=== PATIENT | female | born 1970 | race Caucasian/White ===

== ENCOUNTER 2018-11-14 10:53 | Emergency (ER) | payer OTHER ==
[~2018-11-14] VITALS: Ht 175.3 cm; Wt 90.7 kg
[~2018-11-14 10:53] MED LIST: LOSARTAN-HCTZ1 EAC2 ORAL; PREMPRO 0.45-11 EACH PO; ZOLOFT100 MG ORAL
[2018-11-14] MEDS ORDERED: Acetaminophen 500mg (ES) tab PO ONE (11:00)
[2018-11-14] MEDS ORDERED: Neosporin Oint Ud Pkt TOP ONE (11:00)
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
[2018-11-14 11:13] VITALS: BP 179/90
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
[2018-11-14] MEDS ORDERED: NORCO 5-325 TA1 EACH ORAL (13:31)
[2018-11-14] MEDS ORDERED: IBUPROFEN600 MG ORAL (13:31)
[2018-11-14] MEDS ORDERED: ROBAXIN-500MG ORAL (13:31)
[2018-11-14 13:58] VITALS: BP 155/68
--- NOTE | 2018-11-14 13:58 | NUR ---
ER DISCHARGE NOTE: Patient is cleared to be discharged per ERMD, pt is aox4, on room air, with stable vital signs. pt was given dc and prescription instructions, pt was able to verbalize understanding, pt id band removed. pt is able to ambulate with steady gait. pt took all belongings. Addendum: 11/14/18 at 1400 by COREY pt left with hertwo friends during discharge
--- NOTE | 2018-11-15 17:21 | Cardiology Report ---
APPROVED REPORT EKG Measurement Heart [id number] Normal sinus rhythm Possible Left atrial enlargement Borderline ECG
== END 2018-11-14 13:58 | disposition home or self-care (01) ==
LOC: EDBD 10:53 → EMR 11:20
DX: S83.412A Sprain of medial collateral ligament of left knee, initial encounter (principal); S93.432A Sprain of tibiofibular ligament of left ankle, initial encounter; S80.02XA Contusion of left knee, initial encounter; T22.252A Burn of second degree of left shoulder, initial encounter; X15.8XXA Contact with other hot household appliances, initial encounter; Y92.9 Unspecified place or not applicable; I10 Essential (primary) hypertension; V43.52XA Car driver injured in collision with other type car in traffic accident, initial encounter; Y92.410 Unspecified street and highway as the place of occurrence of the external cause; Z91.040 Latex allergy status; Z79.899 Other long term (current) drug therapy
CPT/HCPCS: 71045; 93005; 99284